=== PATIENT | male | born 1940 | race African-American/Black ===

== ENCOUNTER → 2016-09-08 | Outpatient (CLI) | payer MEDICARE, OTHER | END | disposition home or self-care (01) | LOC: PCVCCLINIC 14:06 | PROVIDERS: ATTEND Internal Medicine Cardiovascular Disease | DX: I25.10 Atherosclerotic heart disease of native coronary artery without angina pectoris (principal); I10 Essential (primary) hypertension; I45.10 Unspecified right bundle-branch block; E78.00 Pure hypercholesterolemia, unspecified; Z79.82 Long term (current) use of aspirin; Z79.899 Other long term (current) drug therapy; Z87.891 Personal history of nicotine dependence | CPT/HCPCS: 80061; 93005; G0463 ==

== ENCOUNTER → 2017-03-28 | Outpatient (CLI) | payer MEDICARE, OTHER ==
--- NOTE | 2017-03-28 17:45 | PCVCIMAG ---
APPROVED REPORT Exam: Nuclear Stress Test Indication: CAD , Pre-Operative CV evaluation(RT FOOT SURGERY) Patient Location: Out-Patient Stress Nurse: Taryn Espinal RN, Jennifer Palma RN [place] Tech:NED Beasley Ht: 5 ft 9 in Wt: 170 lbs BSA: 1.93 m2 HR: 55 bpm BP: 162/88 mmHg BMI: 25.1 Rhythm: NSR, RBBB Medical History Medical History: AGE, HYPERLIPIDEMIA, HTN, CAD, FORMER TOBACCO USE Medications: Norvasc, ASA, Losartan, Crestor, Livalo Allergies: INDERAL, METOPROLOL Previous Cardiac Procedures: PCI - remote Pretest Chest Pain Characteristics: No chest pain Exercise History: Physically active NM EXAM: Myocardial Perfusion REST/STRESS Imaging Protocol: Rest Tc-99m/Stress Tc-99m 1 day Resting Data Rest SPECT myocardial perfusion imaging was performed in supine position 45 minutes following the intravenous injection of 8.1 mCi of Tc-99m Sestamibi. Time of rest injection: 849 Date: 03/28/2017 Administration Route: IV Administration Site: Right Hand Exercise Stress At peak stress, the patient was injected intravenously with 24.7mCi of Tc-99m Sestamibi. Time of stress injection: 849 Date: 03/28/2017 Administration Route: IV Administration Site: Right Hand Gated Stress SPECT was performed 45 minutes after stress injection. The images were gated to evaluate regional wall motion and calculate left ventricular ejection fraction. Study Quality Study: Good Study Data Post stress, the left ventricular ejection was 72%.. SSS: 0 SRS: 6 SDS: 0 TID = 0.84. Perfusion No evidence of stress induced ischemia or prior myocardial infarction. Wall Motion Normal left ventricular size and function with no regional wall motion abnormalities. Nuclear Conclusion No evidence of stress induced ischemia or prior myocardial infarction. Normal left ventricular size and function with no regional wall motion abnormalities. Post stress, the left ventricular ejection was 72%.. No change since prior study dated June 2015. Interpreted by: Favian Bland MD Electronically Approved: 03/28/2017 12:38:48 Stress Test Details Stress Test: Exercise stress testing was performed using a Manoj protocol. HR Resting HR: 55 bpmMax Heart Rate (APMHR): 145 bpm Max HR Achieved: 141 bpmTarget HR (85% APMHR): 123 bpm % of APMHR: 97 Recovery HR: 74 bpm HR response to stress: Normal HR response to stress BP Resting BP: 162/88 mmHg Max BP: 198/91 mmHg BP response to stress: Normal blood pressure response to stress. ECG Resting ECG: Sinus Brett, RBBB Stress ECG: Sinus Tachycardia, RBBB ST Change: Downsloping ST depression Maximum ST Deviation: 3.75 mm Arrhythmia: VPC's Recovery ECG: Sinus Rhythm, RBBB Clinical Reason for Termination: Dyspnea Stress Symptoms: Dyspnea Exercise duration: 8 min 01 sec Exercise capacity: 10.1 METs Overall Exercise Capacity for Age: Average Scale: Active Angina Score: None Symptoms resolved during recovery. Stress ECG Conclusion ECG: Non-ischemic Clinical: Non-ischemic He Treadmill Score is -10.8 which is Moderate risk. <Conclusion> ECG: Non-ischemic Clinical: Non-ischemic
== END | disposition home or self-care (01) ==
LOC: PCVCIMAG 08:38
PROVIDERS: ATTEND Internal Medicine Cardiovascular Disease
DX: Z01.818 Encounter for other preprocedural examination (principal); I25.10 Atherosclerotic heart disease of native coronary artery without angina pectoris; E78.5 Hyperlipidemia, unspecified; I10 Essential (primary) hypertension; Z87.891 Personal history of nicotine dependence
CPT/HCPCS: 78452; 93017; A9500

== ENCOUNTER → 2017-11-14 | Outpatient (CLI) | payer MEDICARE, OTHER | END | disposition home or self-care (01) | LOC: PCVCCLINIC 14:33 | DX: I25.10 Atherosclerotic heart disease of native coronary artery without angina pectoris (principal); E78.00 Pure hypercholesterolemia, unspecified; I10 Essential (primary) hypertension; I45.10 Unspecified right bundle-branch block; Z79.82 Long term (current) use of aspirin; Z87.891 Personal history of nicotine dependence | CPT/HCPCS: 80061; 93005; G0463 ==

== ENCOUNTER → 2018-06-18 | Outpatient (CLI) | payer MEDICARE, OTHER ==
--- NOTE | 2018-06-18 14:55 | PCVCIMAG ---
APPROVED REPORT Study performed: 06/18/2018 10:08:33 Exam: Stress Echocardiogram Indication: Hyperlipidemia, Hypertension, CAD, Stent Patient Location: Echo lab Stress Nurse: Jennifer Palma RN Status: routine Ht: 5 ft 10 in HR: 54 bpm BP: 104/68 mmHg Rhythm: NSR Medical History Medical History: Hyperlipidemia, HTN, CAD, Stent Procedure The patient underwent an Exercise Stress Test using the Manoj Protocol. Blood pressure, heart rate, and EKG were monitored. An Echocardiogram was performed by avionics electronics technician in four stages in quad fashion. At peak stress, four selected images were obtained and placed side by side with resting images for comparison. Stress Test Details Stress Test: Exercise stress testing was performed using a Manoj protocol. HR Resting HR: 54 bpmMax Heart Rate (APMHR): 144 bpm Max HR Achieved: 166 bpmTarget HR (85% APMHR): 122 bpm % of APMHR: 115 Recovery HR: 75 bpm HR response to stress: Normal HR response to stress BP Resting BP: 104/68 mmHg Max BP: 170/70 mmHg Recovery BP: 150/70 mmHg BP response to stress: Normal blood pressure response to stress. ECG Resting ECG: Sinus Rhythm, RBBB Stress ECG: Sinus Rhythm, RBBB Recovery ECG: Sinus Rhythm, RBBB Clinical Reason for Termination: Maximal effort Exercise duration: 6 min 34 sec Highest Stage Achieved: Stage 2: 2.5 mph at 12% grade. Exercise capacity: 8.70 METs Overall Exercise Capacity for Age: Normal Pre-Stress Echo The resting Echocardiogram showed normal left ventricular contractility with an estimated Ejection Fraction of about 55-60%. Normal wall motion in all segments on baseline images. Post-Stress Echo The stress Echocardiogram showed normal left ventricular contractility with an estimated Ejection Fraction of about 60-65%. Normal augmentation of wall motion in all segments on post stress images. Clinical No clinical or ECG evidence for ischemia. Conclusion Clinical Response: Non-ischemic Exercise Capacity: Average Stress ECG Response: Non-ischemic Stress Echo Images: Non-ischemic The left ventricle is normal in size and wall thickness in both the rest and stress images. Other Information Study Quality: Excellent <Conclusion> The left ventricle is normal in size and wall thickness in both the rest and stress images.
== END | disposition home or self-care (01) ==
LOC: PCVCIMAG 10:25
PROVIDERS: ATTEND Internal Medicine Cardiovascular Disease
DX: I25.10 Atherosclerotic heart disease of native coronary artery without angina pectoris (principal); I10 Essential (primary) hypertension; E78.5 Hyperlipidemia, unspecified; I45.10 Unspecified right bundle-branch block; E78.00 Pure hypercholesterolemia, unspecified; K86.9 Disease of pancreas, unspecified; R74.8 Abnormal levels of other serum enzymes
CPT/HCPCS: 93325; 93351

== ENCOUNTER → 2018-09-06 | Outpatient (CLI) | payer MEDICARE, OTHER | END | disposition home or self-care (01) | LOC: PCVCCLINIC 13:40 | PROVIDERS: ATTEND Internal Medicine Cardiovascular Disease | DX: I25.10 Atherosclerotic heart disease of native coronary artery without angina pectoris (principal); E78.00 Pure hypercholesterolemia, unspecified; I10 Essential (primary) hypertension; Z79.82 Long term (current) use of aspirin; Z87.891 Personal history of nicotine dependence; Z88.8 Allergy status to other drugs, medicaments and biological substances | CPT/HCPCS: 36415; 80061; 93005; G0463 ==

== ENCOUNTER → 2019-01-02 | Outpatient (CLI) | payer MEDICARE, OTHER | END | disposition home or self-care (01) | LOC: PCVCCLINIC 16:16 | PROVIDERS: ATTEND Internal Medicine Cardiovascular Disease | DX: I25.10 Atherosclerotic heart disease of native coronary artery without angina pectoris (principal); I45.10 Unspecified right bundle-branch block; I10 Essential (primary) hypertension; E78.00 Pure hypercholesterolemia, unspecified; Z88.8 Allergy status to other drugs, medicaments and biological substances; Z87.891 Personal history of nicotine dependence; Z79.899 Other long term (current) drug therapy; Z79.82 Long term (current) use of aspirin; Z72.89 Other problems related to lifestyle | CPT/HCPCS: 36415; 80061; 93005; G0463 ==